=== PATIENT | male | born 1985 | race Hispanic/Latino ===

== ENCOUNTER 2022-05-24 12:46 | Emergency (ER) | payer SELFPAY ==
[~2022-05-24] VITALS: Ht 162.6 cm; Wt 70.0 kg
[~2022-05-24 12:46] MED LIST: CLEOCIN PE75 MG/5 ML OR; NAPROSYN500 MG OR; PERIOGARD0.12 % MT; ROXICET OR; no homemeds
[2022-05-24 14:08] VITALS: BP 114/77
== END 2022-05-24 14:08 | disposition home or self-care (01) | DRG 153 ==
LOC: WW 12:46 → ED 12:46
DX: J02.9 Acute pharyngitis, unspecified (principal); Z20.822 Contact with and (suspected) exposure to COVID-19
CPT/HCPCS: J0561